=== PATIENT | female | born 1970 | race Two or more races ===

== ENCOUNTER → 2019-02-22 | Emergency (ER) | payer OTHER ==
[~2019-02-22] VITALS: Ht 149.9 cm; Wt 53.1 kg
[~2019-02-22] MED LIST: CYMBALTA60 MG; DIAZEPAM5 MG/1 M1; GABAPENTIN300 MG
== END | disposition left against medical advice (07) ==
LOC: ER 02:19
DX: Z53.20 Procedure and treatment not carried out because of patient's decision for unspecified reasons (principal)